=== PATIENT | female | born 1990 | race Two or more races ===

== ENCOUNTER 2018-04-03 03:03 | Outpatient (CLI) | payer MEDICAID ==
[~2018-04-03] VITALS: Ht 165.1 cm; Wt 98.0 kg
== END 2018-04-03 04:50 | disposition home or self-care (01) ==
LOC: LDOP 03:03
PROVIDERS: ATTEND Student in an Organized Health Care Education/Training Program
DX: O26.893 Other specified pregnancy related conditions, third trimester (principal); R10.9 Unspecified abdominal pain; O62.4 Hypertonic, incoordinate, and prolonged uterine contractions; Z3A.40 40 weeks gestation of pregnancy
CPT/HCPCS: 59025; 99201; G0463

== ENCOUNTER 2018-04-05 02:49 | Inpatient (IN) | payer MEDICAID ==
[~2018-04-05] VITALS: Ht 165.1 cm; Wt 98.0 kg
[2018-04-05] MEDS ORDERED: OXYTOCIN 30U/ 0.9% NaCL 500ML 500 ML IV ONE (02:50)
[2018-04-05] MEDS ORDERED: OXYTOCIN 30U/ 0.9% NaCL 500ML 500 ML IV PRN (02:50)
[2018-04-05] MEDS: D5%-LACTATED RINGERS 1,000 ML IV SCH ×2 (02:50→19:53)
[2018-04-05] MEDS ORDERED: NEWBORN KIT ONE (02:54)
[2018-04-05] MEDS ORDERED: OXYTOCIN 30U/ 0.9% NaCL 500ML 500 ML ONE (02:54)
[2018-04-05] MEDS ORDERED: FENTANYL PF 100 MCG/2ML IV PRN (03:00)
[2018-04-05] MEDS ORDERED: CALCIUM CARBONATE 500 MG TAB.CHEW PO PRN ×2 (03:00→22:00)
[2018-04-05] MEDS ORDERED: TERBUTALINE 1 MG/ML, 1ML IVPush PRN (03:00)
[2018-04-05] MEDS ORDERED: PLEASE ENTER ALLERGIES MC SCH (03:00)
[2018-04-05] MEDS ORDERED: ONDANSETRON 2MG/ML, 2ML IVPush PRN (03:00)
[2018-04-05] MEDS ORDERED: FENTANYL PF 100 MCG/2ML IVPush PRN (03:00)
[2018-04-05 03:08] LABS: BASOPHILS # (AUTO) 0.09 x10^3/uL (0-0.1); BASOPHILS % (AUTO) 1 % (0-1); EOSINOPHILS # (AUTO) 0.07 x10^3/uL (0-0.4); EOSINOPHILS % (AUTO) 1 % (1-7); LYMPHOCYTES # (AUTO) 2.81 x10^3/uL (1-3.4); LYMPHOCYTES % (AUTO) 28 % (22-44); MD NO; MEAN CORPUSCULAR HEMOGLOBIN 31.8 pg (27.0-34.8); MEAN CORPUSCULAR HGB CONC 34.7 g/dL (32.4-35.8); MEAN CORPUSCULAR VOLUME 91.8 fL (80-100); MEAN PLATELET VOLUME 8.9 fL (7.4-10.4); MONOCYTES # (AUTO) 0.88 x10^3/uL (0.2-0.8); MONOCYTES % (AUTO) 9 % (2-9); NEUTROPHILS # (AUTO) 6.12 x10^3/uL (1.8-6.8); NEUTROPHILS % (AUTO) 62 % (42-75); PLATELET COUNT 192 x10^3/uL (130-400); RED BLOOD COUNT 3.89 x10^6/uL (3.82-5.3); RED CELL DISTRIBUTION WIDTH 13.2 % (9.6-15.2)
[2018-04-05 03:35] VITALS: BP 110/61
[2018-04-05] MEDS: LACTATED RINGERS 1,000 ML IV SCH ×5 (04:03→17:11)
[2018-04-05] MEDS ORDERED: MISOPROSTOL 200 MCG TABLET ONE (05:45)
[2018-04-05] MEDS ORDERED: FENTANYL/BUPIV./NS/PF 250 ML EPIDCONT SCH ×2 (09:03→10:56)
[2018-04-05] MEDS ORDERED: FENTANYL PF 500 MCG, BUPIVACAINE/PF 0.5%, 30ML 62.5 ML in SODIUM CHLORIDE 0.9% 177.5 ML EPIDCONT SCH (09:30)
[2018-04-05] MEDS ORDERED: BUPIVACAINE 0.25% ONE (10:27)
[2018-04-05] MEDS ORDERED: EPHEDRINE 50 MG/ML, 1ML IVPush PRN (11:00)
[2018-04-05] MEDS ORDERED: LACTATED RINGERS 1,000 ML IVBOLUS PRN (11:00)
[2018-04-05] MEDS: LACTATED RINGERS 1,000 ML INTUTE SCH (14:47)
[2018-04-05] MEDS ORDERED: LACTATED RINGERS 1,000 ML INTUTE PRN (15:00)
[2018-04-05] MEDS ORDERED: IBUPROFEN 600 MG TABLET ONE (21:23)
[2018-04-05] MEDS: IBUPROFEN 600 MG TABLET PO PRN (21:37)
[2018-04-05] MEDS: OXYTOCIN 30U/ 0.9% NaCL 500ML 500 ML IV SCH (21:38)
[2018-04-05] MEDS ORDERED: MISOPROSTOL 200 MCG TABLET PR PRN (22:00)
[2018-04-05] MEDS ORDERED: OXYcodone/APAP 5/325MG TABLET PO PRN (22:00)
[2018-04-05] MEDS ORDERED: ONDANSETRON 2MG/ML, 2ML IV PRN (22:00)
[2018-04-05] MEDS ORDERED: ACETAMINOPHEN 325 MG TABLET PO PRN (22:00)
[2018-04-05 23:30] VITALS: BP 99/63
[2018-04-06 04:02] VITALS: BP 86/54
[2018-04-06 05:31] LABS: BASOPHILS # (AUTO) 0.02 x10^3/uL (0-0.1); BASOPHILS % (AUTO) 0 % (0-1); EOSINOPHILS # (AUTO) 0.06 x10^3/uL (0-0.4); EOSINOPHILS % (AUTO) 0 % (1-7); LYMPHOCYTES # (AUTO) 1.91 x10^3/uL (1-3.4); LYMPHOCYTES % (AUTO) 15 % (22-44); MD NO; MEAN CORPUSCULAR HEMOGLOBIN 32.2 pg (27.0-34.8); MEAN CORPUSCULAR HGB CONC 34.8 g/dL (32.4-35.8); MEAN CORPUSCULAR VOLUME 92.6 fL (80-100); MEAN PLATELET VOLUME 9.1 fL (7.4-10.4); MONOCYTES # (AUTO) 0.84 x10^3/uL (0.2-0.8); MONOCYTES % (AUTO) 7 % (2-9); NEUTROPHILS # (AUTO) 10.05 x10^3/uL (1.8-6.8); NEUTROPHILS % (AUTO) 78 % (42-75); PLATELET COUNT 148 x10^3/uL (130-400); RED BLOOD COUNT 3.01 x10^6/uL (3.82-5.3); RED CELL DISTRIBUTION WIDTH 13.8 % (9.6-15.2)
[2018-04-06 07:23] VITALS: BP 97/63
[2018-04-06] MEDS: OXYTOCIN 30U/ 0.9% NaCL 500ML 500 ML IV SCH ×2 (07:33→17:33)
[2018-04-06] MEDS: IBUPROFEN 600 MG TABLET PO PRN ×3 (08:06→23:18)
[2018-04-06] MEDS: PRENATAL VIT/IRON/FA 1 EACH TABLET PO SCH (08:06)
[2018-04-06] MEDS: LACTATED RINGERS 1,000 ML INTUTE SCH (08:07)
[2018-04-06] MEDS: OXYcodone/APAP 5/325MG TABLET PO PRN ×3 (09:02→23:18)
[2018-04-06] MEDS ORDERED: MEASLES,MUMPS&RUBELLA VACC/PF 0.5 ML SQ-VACC ONE ×2 (16:01→16:30)
[2018-04-06 19:40] VITALS: BP 120/81
[2018-04-06] MEDS: DOCUSATE 100 MG CAPSULE PO PRN (23:18)
[2018-04-07] MEDS: OXYTOCIN 30U/ 0.9% NaCL 500ML 500 ML IV SCH (03:33)
[2018-04-07 07:20] VITALS: BP 111/74
[2018-04-07] MEDS: OXYcodone/APAP 5/325MG TABLET PO PRN (07:54)
[2018-04-07] MEDS: IBUPROFEN 600 MG TABLET PO PRN (07:54)
[2018-04-07] MEDS: PRENATAL VIT/IRON/FA 1 EACH TABLET PO SCH (07:54)
[2018-04-07] MEDS: DOCUSATE 100 MG CAPSULE PO PRN (07:54)
[2018-04-07] MEDS ORDERED: OXYC-302 PO (12:01)
[2018-04-07] MEDS ORDERED: IBUP-1222 PO (12:01)
[2018-04-07] MEDS ORDERED: FERR-51 PO (12:01)
== END 2018-04-07 13:35 | disposition home or self-care (01) | DRG 807 ==
LOC: LDIP 02:49 → EDSTATUS 13:02 → 2NW 23:18
PROVIDERS: ADMIT Student in an Organized Health Care Education/Training Program; ATTEND Student in an Organized Health Care Education/Training Program
PROC: 10E0XZZ Delivery of Products of Conception, External Approach (ICD-10-PCS; principal; 2018-04-05)
PROC: 0KQM0ZZ Repair Perineum Muscle, Open Approach (ICD-10-PCS; 2018-04-05)
PROC: 10907ZC Drainage of Amniotic Fluid, Therapeutic from Products of Conception, Via Natural or Artificial Opening (ICD-10-PCS; 2018-04-05)
PROC: 3E0R3BZ Introduction of Anesthetic Agent into Spinal Canal, Percutaneous Approach (ICD-10-PCS; 2018-04-05)
PROC: 00HU33Z Insertion of Infusion Device into Spinal Canal, Percutaneous Approach (ICD-10-PCS; 2018-04-05)
DX: O76 Abnormality in fetal heart rate and rhythm complicating labor and delivery (principal); Z37.0 Single live birth; O77.0 Labor and delivery complicated by meconium in amniotic fluid; O70.1 Second degree perineal laceration during delivery; Z3A.39 39 weeks gestation of pregnancy; Z80.3 Family history of malignant neoplasm of breast; Z82.49 Family history of ischemic heart disease and other diseases of the circulatory system
CPT/HCPCS: 36415; J7121; 85025; 86850; 86900; G0378; J2590; J7120